=== PATIENT | female | born 1960 | race Caucasian/White ===

== ENCOUNTER 2016-12-01 17:35 | Inpatient (IN) | payer OTHER ==
[~2016-12-01] VITALS: Ht 172.7 cm; Wt 85.8 kg
--- NOTE | ~2016-12-01 | EKG ---
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
--- NOTE | ~2016-12-01 | HC ---
[facility] [place] [address] CONSULTATION Name: JOSEFINA YI Room #: 434-P ADM IN M.R.#: [id number] Admission: 12/01/16 Attend Phys: Cedrick Chrsitensen MD Discharge: Date of : 56 Report #: [id number] THIS REPORT FOR: //name// CC: [facility] physician/PCP Cedrick Christensen PRIMARY PHYSICIAN: Ruthie Barnes MD REFERRING PHYSICIAN: Cedrick Christensen MD REASON FOR REFERRAL: Dyspnea. HISTORY OF PRESENT ILLNESS: The patient is a 56-year-old white female who presents to the emergency room with increasing dyspnea, cough, fever, and myalgias. She was admitted for presumed pneumonia. A pulmonary consultation was requested. The patient has smoked about a pack a day for most of the life. She states that she quit smoking 7 days ago. She has been told that she has COPD in the past. She was last hospitalized 3 years ago. She was in the usual state of health until about 3 days ago when she started to develop cough, dyspnea, and sore throat. She then developed myalgias, fever, chills, and productive cough of purulent sputum. Chest x-ray on admission revealed bilateral vascular congestion, questionable right lower lobe infiltrates. PAST MEDICAL HISTORY: Notable for diabetes mellitus type 2, fibromyalgia, tobacco abuse, history of pneumonia 3 years ago, ovarian cyst, osteoarthritis, and migraine headaches. 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 ALLERGIES: To PENICILLIN, reactions not specified. HOME MEDICATIONS: Zantac, Prilosec, baclofen, Topamax, erythromycin, Nasonex, Enablex, Ventolin, hydrocodone, Synthroid, Motrin, hydroxyzine, and Zithromax. FAMILY HISTORY: Noncontributory. SOCIAL HISTORY: She has smoked most of her life until last 7 days ago, about a pack a day. She drinks socially. REVIEW OF SYSTEMS: As mentioned above, otherwise 10-point system review negative. [facility] [address] [address] CONSULTATION Name: JOSEFINA YI Room #: 434-P [facility] IN M.R.#: [id number] Admission: 12/01/16 Attend Phys: Cedrick Christensen MD Discharge: Date of : 56 Report #: [id number] PHYSICAL EXAMINATION: GENERAL: She is awake, alert, in no apparent distress. VITAL SIGNS: Temperature is 98 degrees Fahrenheit, pulse is , 130/70 mmHg, saturation is 94%. HEENT: Normocephalic, atraumatic. NECK: Supple without any lymphadenopathy or thyromegaly. CHEST: Breath sounds are moderate bilaterally with mild expiratory wheezes. CARDIOVASCULAR: Heart sounds are distant. Normal S1, S2. No murmurs or gallop. Pulses are 2+/4+ bilaterally. BREASTS: Deferred. ABDOMEN: Soft, nontender, no organomegaly or masses felt. EXTREMITIES: There is no edema, cyanosis, or clubbing. LABORATORY DATA: Chest x-ray as mentioned above. Electrolytes are grossly unremarkable. WBC 16,600 without a left shift. Albumin is 3.4. Arterial blood gas revealed pH 7.37, pCO2 of 45, pO2 of 55 on 3 liters of O2. Hemoglobin is 16.6. IMPRESSION: 1. Acute hypercapnic hypoxic respiratory failure in this 56-year-old white female likely related to exacerbation of chronic obstructive pulmonary disease with a productive cough, leukocytosis, possible lower respiratory tract infection, possible pneumonia. Gram-negative is considered. 2. Chronic obstructive pulmonary disease exacerbation. 3. Tobacco abuse, recently quit smoking 7 days ago. 4. Mild infiltrates, right lower lobe, possible pneumonia as mentioned above. RECOMMENDATION: Agree with corticosteroids and bronchodilators along with broad spectrum antibiotics. DVT and GI prophylaxis will be addressed. Smoke cessation should be provided. Once stable, the patient will benefit from an outpatient followup with a pulmonary function test. She would also benefit from maintenance bronchodilator therapy such as Spiriva. In terms of antibiotics, we will complete approximately 5-7 day course. Thank you for this consultation. <ELECTRONICALLY SIGNED> By: Jose Morfin MD 12/02/16 1634 [id number] Jose Morfin MD /nt
[~2016-12-01 17:35] MED LIST: ALLERCLEAR10 MG PO; ALPRAZOLAM ER1 MG; ALPRAZOLAM PO; AUGMENTIN 875875 M1 PO; BACLOFEN 10MG T10 MG PO; BACLOFEN20 MG; BACLOFEN20 MG PO; CELEBREX 200 M200 MG PO; CELEBREX50 MG PO; DIFLUCAN PO; ENABLEX15 MG PO; ERY-TAB250 MG PO; HYDROXYZINE HCL25 M1 PO; IBUPROFEN 800800 M1 PO; LEVAQUIN 500 M500 M1 PO; LEVOTHYROXINE0.2 M1 PO; LIDODERM 5%1 PATCH TRANSDERM; MAXALT MLT ODT10 M1 PO; MEDI-PATCH WIT1 EACH; MEDROLDOSEPACK PO; NASONEX17 GM NASAL; NORCO 5-325 TA1 EACH PO; NORCO 7.5-3251 EACH PO; OSELB75 PO; OUT OF MEDS; OXYCONTIN10 M1 PO; PERCOCET 5-3251 EACH PO; PERCOCET PO; PHENERGAN 25 MG25 M1; PHENERGAN 25 MG25 MG PO; PHENERGAN PO; PHENERGAN25 MG RE; PREDNISONE 10 M10 M1 PO; PREDNISONE 20 M20 M1 PO; PRILOSEC 20 MG20 MG PO; PRILOSEC40 MG; RANITIDINE HCL300 M1 PO; SANTURA; SAVELLA1 EACH; SYNTHROID100 MCG PO; SYNTHROID125 MCG PO; TOPAMAX200 MG PO; TOPAMAX50 MG PO; TRAMADOL 50 MG50 MG PO; VENTOLIN HFA 1818 GM INH; VENTOLIN17 GM INH; VICODIN; VICODIN 5-5001 EACH PO; VITAMIN D 5050000 I1 PO; VITAMIN D400 UNI1; XANAX PO; XANAX XR1 MG PO; ZANTAC150 M2 PO; ZOCOR40 MG PO; ZOLMITRIPTAN ODT5 MG PO; ZYRTEC
[2016-12-01 17:37] VITALS: BP 142/112
[2016-12-01] MEDS ORDERED: ZITHROMAX250 MG PO (17:56)
[2016-12-01 18:17] LABS: HEMATOCRIT 48.7 % (37.0-47.0); HEMOGLOBIN 16.6 gm/dL (12.0-15.0); MCH 29.5 pg (26.0-34.0); MCV 86.6 fL (80.0-100.0); PLATELET COUNT 296 thou/uL (150-400); RBC 5.62 mil/uL (4.20-5.00); WBC 16.6 thou/uL (4.0-11.0)
[2016-12-01 18:28] LABS: MANUAL DIFF YES
[2016-12-01 18:30] LABS: ANION GAP 10 mmol/L (7-16); APTT 24.4 Seconds (24.5-32.8); BUN 23 mg/dL (7-18); CALCIUM 9.4 mg/dL (8.5-10.1); CHLORIDE 99 mmol/L (98-107); CO2 28 mmol/L (21-32); CREATININE 0.9 mg/dL (0.6-1.3); GLUCOSE 223 mg/dL (70-99); POTASSIUM 3.8 mmol/L (3.5-5.1); PROTIME 10.7 Seconds (9.3-11.4); SODIUM 137 mmol/L (136-145)
[2016-12-01 18:43] LABS: ALBUMIN 3.4 g/dL (3.4-5.0); ALKALINE PHOSPHATASE 153 U/L (46-116); NT-PRO BRAIN NAT PEPTIDE 99 pg/mL (<300); SGOT 20 U/L (15-37); SGPT 39 U/L (30-65); TOTAL BILIRUBIN 0.6 mg/dL (<0.1-1.0); TOTAL PROTEIN 8.7 g/dL (6.4-8.2); TROPONIN-I < 0.04 ng/mL (<0.04-0.07)
[2016-12-01 19:00] LABS: ABSOLUTE NEUTROPHILS 12.1 thou/uL (1.4-8.2); TOTAL CELL COUNT 100
[2016-12-01 19:49] VITALS: BP 142/94
[2016-12-01 20:40] VITALS: BP 150/85
[2016-12-02 00:39] VITALS: BP 133/84
[2016-12-02 05:05] VITALS: BP 127/80
[2016-12-02 06:55] LABS: HEMATOCRIT 42.9 % (37.0-47.0); MCH 29.3 pg (26.0-34.0); MCHC 33.7 % (28.0-37.0); MCV 87.1 fL (80.0-100.0); RBC 4.93 mil/uL (4.20-5.00); RDW 14.1 % (10.5-14.5); WBC 11.5 thou/uL (4.0-11.0)
[2016-12-02 07:01] LABS: HEMOGLOBIN 14.5 gm/dL (12.0-15.0)
[2016-12-02 07:10] LABS: CREATININE 0.8 mg/dL (0.6-1.3); POTASSIUM 4.2 mmol/L (3.5-5.1)
[2016-12-02 07:37] VITALS: BP 102/65
[2016-12-02 09:51] LABS: ABG SAMPLE TYPE ARTERIAL; BE(vivo) 0.2 mmol/L (-2 to +3); HCO3 25.9 mmol/L (22.0-26.0); LACTATE 1.37 mmol/L (0.5-2.0); O2(CT) 18.6 mL/dL (15.0-23.0); O2Hb 87.9 % (92.0-98.0); PCO2 45.6 mmHg (35.0-45.0); pH 7.372 (7.360-7.450); sO2 87.7 % (92.0-98.0); tCO2 27.3 mmol/L (24.0-30.0)
[2016-12-02 09:53] LABS: PO2 55.1 mmHg (80.0-100.0)
[2016-12-02 10:12] LABS: TSH 0.025 uIU/mL (0.450-4.500)
[2016-12-02 10:19] LABS: STICK SITE L.BRACHIAL
[2016-12-02 12:34] VITALS: BP 133/68
[2016-12-02 15:54] VITALS: BP 133/73
[2016-12-02 19:49] VITALS: BP 111/45
[2016-12-02 22:07] LABS: GLYCOHEMOGLOBIN (HGB A1C) 6.6 % (4.8-5.6)
[2016-12-03 03:50] VITALS: BP 124/61
[2016-12-03 05:17] LABS: ABSOLUTE NEUTROPHILS 11.6 thou/uL (1.4-8.2); BASOPHILS 0.2 % (0.0-2.0); HEMATOCRIT 43.8 % (37.0-47.0); HEMOGLOBIN 14.4 gm/dL (12.0-15.0); LYMPHOCYTES 13.7 % (24.0-44.0); MCH 28.9 pg (26.0-34.0); MCHC 32.8 % (28.0-37.0); MCV 88.2 fL (80.0-100.0); PLATELET COUNT 311 thou/uL (150-400); POLYS 80.1 % (36.0-66.0); RBC 4.97 mil/uL (4.20-5.00); RDW 13.9 % (10.5-14.5); WBC 14.5 thou/uL (4.0-11.0)
[2016-12-03 05:23] LABS: ABG SAMPLE TYPE ARTERIAL; BE(vivo) 0.7 mmol/L (-2 to +3); HCO3 26.9 mmol/L (22.0-26.0); LACTATE 2.47 mmol/L (0.5-2.0); O2(CT) 19.6 mL/dL (15.0-23.0); O2Hb 94.2 % (92.0-98.0); PCO2 48.7 mmHg (35.0-45.0); PO2 76.3 mmHg (80.0-100.0); STICK SITE LBA; sO2 94.7 % (92.0-98.0); tCO2 28.4 mmol/L (24.0-30.0)
[2016-12-03 05:26] LABS: MANUAL DIFF NO
[2016-12-03 05:44] LABS: POTASSIUM 4.4 mmol/L (3.5-5.1)
[2016-12-03 08:00] VITALS: BP 131/80
[2016-12-03 12:00] VITALS: BP 141/52
[2016-12-03 15:52] VITALS: BP 127/56
[2016-12-03 19:07] VITALS: BP 131/72
[2016-12-04 04:55] VITALS: BP 147/79
[2016-12-04 05:11] LABS: ABSOLUTE NEUTROPHILS 8.8 thou/uL (1.4-8.2); HEMATOCRIT 43.5 % (37.0-47.0); HEMOGLOBIN 14.2 gm/dL (12.0-15.0); LYMPHOCYTES 18.6 % (24.0-44.0); MCH 29.1 pg (26.0-34.0); MCHC 32.6 % (28.0-37.0); MCV 89.3 fL (80.0-100.0); MONOCYTES 5.7 % (1.0-8.0); PLATELET COUNT 294 thou/uL (150-400); POLYS 74.7 % (36.0-66.0); RBC 4.87 mil/uL (4.20-5.00); RDW 14.3 % (10.5-14.5); WBC 11.7 thou/uL (4.0-11.0)
[2016-12-04 05:23] LABS: CALCIUM 8.5 mg/dL (8.5-10.1); CREATININE 0.9 mg/dL (0.6-1.3); MANUAL DIFF NO; POTASSIUM 4.2 mmol/L (3.5-5.1)
[2016-12-04 06:08] LABS: ABG SAMPLE TYPE ARTERIAL; BE(vivo) -2.8 mmol/L (-2 to +3); HCO3 22.2 mmol/L (22.0-26.0); LACTATE 1.78 mmol/L (0.5-2.0); O2(CT) 20.1 mL/dL (15.0-23.0); O2Hb 94.4 % (92.0-98.0); PCO2 39.2 mmHg (35.0-45.0); STICK SITE R.BRACHIAL; sO2 95.4 % (92.0-98.0); tCO2 23.4 mmol/L (24.0-30.0)
[2016-12-04 08:36] VITALS: BP 134/62
[2016-12-04 16:56] VITALS: BP 148/83
[2016-12-04 19:35] VITALS: BP 155/72
[2016-12-05 05:00] VITALS: BP 140/70
[2016-12-05 06:41] LABS: HEMATOCRIT 47.4 % (37.0-47.0); HEMOGLOBIN 15.3 gm/dL (12.0-15.0); MCH 28.9 pg (26.0-34.0); MCHC 32.2 % (28.0-37.0); MCV 89.7 fL (80.0-100.0); PLATELET COUNT 323 thou/uL (150-400); RBC 5.28 mil/uL (4.20-5.00); RDW 14.1 % (10.5-14.5); WBC 13.9 thou/uL (4.0-11.0)
[2016-12-05 06:42] LABS: MANUAL DIFF YES
[2016-12-05 06:51] LABS: CREATININE 0.9 mg/dL (0.6-1.3); POTASSIUM 4.3 mmol/L (3.5-5.1)
[2016-12-05 08:00] VITALS: BP 121/60
[2016-12-05 08:35] LABS: METAMYELOCYTES 2 %; TOTAL CELL COUNT 100
[2016-12-05 08:36] LABS: ANISOCYTOSIS SLIGHT; ATYPICAL LYMPHS 2 %
[2016-12-05 11:06] VITALS: BP 126/64
[2016-12-05 16:00] VITALS: BP 104/46
[2016-12-05 19:30] VITALS: BP 126/68
[2016-12-06 03:50] VITALS: BP 125/70
[2016-12-06 05:56] LABS: HEMATOCRIT 46.1 % (37.0-47.0); MCH 28.8 pg (26.0-34.0); MCHC 32.5 % (28.0-37.0); MCV 88.6 fL (80.0-100.0); PLATELET COUNT 325 thou/uL (150-400); RDW 14.1 % (10.5-14.5); WBC 13.1 thou/uL (4.0-11.0)
[2016-12-06 06:11] LABS: MANUAL DIFF YES
[2016-12-06 06:44] LABS: CALCIUM 8.7 mg/dL (8.5-10.1); POTASSIUM 4.5 mmol/L (3.5-5.1)
[2016-12-06 08:00] VITALS: BP 144/85
[2016-12-06 08:50] LABS: ABSOLUTE NEUTROPHILS 10.5 thou/uL (1.4-8.2); METAMYELOCYTES 2 %; PLATELET ESTIMATE NORMAL; TOTAL CELL COUNT 100
[2016-12-06] MEDS ORDERED: QUINU10 PD PO (10:52)
[2016-12-06] MEDS ORDERED: PROTONIX40 M1 PO (10:52)
[2016-12-06] MEDS ORDERED: LEVAQUIN 500 M500 M6 PO (10:52)
[2016-12-06] MEDS ORDERED: MUCINEX DM TABL1 TA1 PO (10:52)
[2016-12-06] MEDS ORDERED: PREDNISONE 10 M10 MG PO (10:52)
[2016-12-06] MEDS ORDERED: BENZONATATE100 MG PO (10:52)
[2016-12-06 12:00] VITALS: BP 119/68
[2016-12-06 13:00] VITALS: BP 144/85
== END 2016-12-06 13:55 | disposition home or self-care (01) | DRG 190 ==
LOC: ER 17:35 → EROBS 19:20 → 4S 19:20
PROVIDERS: Emergency Medicine; Hospitalist; Nurse Practitioner
DX: J44.0 Chronic obstructive pulmonary disease with (acute) lower respiratory infection (principal); J96.01 Acute respiratory failure with hypoxia; J18.9 Pneumonia, unspecified organism; J96.02 Acute respiratory failure with hypercapnia; J44.1 Chronic obstructive pulmonary disease with (acute) exacerbation; F17.210 Nicotine dependence, cigarettes, uncomplicated; E11.65 Type 2 diabetes mellitus with hyperglycemia; I10 Essential (primary) hypertension; E03.9 Hypothyroidism, unspecified; G89.4 Chronic pain syndrome; G43.909 Migraine, unspecified, not intractable, without status migrainosus; Z88.0 Allergy status to penicillin; Z79.899 Other long term (current) drug therapy; Z79.4 Long term (current) use of insulin; Z99.81 Dependence on supplemental oxygen; Z87.01 Personal history of pneumonia (recurrent); Z90.721 Acquired absence of ovaries, unilateral; Z98.890 Other specified postprocedural states
CPT/HCPCS: 10100

== ENCOUNTER 2017-12-11 12:45 | Emergency (ER) | payer OTHER ==
[~2017-12-11] VITALS: Ht 172.7 cm; Wt 81.2 kg
[~2017-12-11 12:45] MED LIST changes: +BENZONATATE100 MG PO; +LEVAQUIN 500 M500 M6 PO; +MUCINEX DM TABL1 TA1 PO; +PREDNISONE 10 M10 MG PO; +PROTONIX40 M1 PO; +QUINU10 PD PO; +ZITHROMAX250 MG PO
[2017-12-11] MEDS ORDERED: OMEPRAZOLE 20 M20 M1 PO (13:15)
[2017-12-11] MEDS ORDERED: NORCO 10-325 T1 EACH PO (13:16)
[2017-12-11] MEDS ORDERED: TOPAMAX 100 MG100 MG PO (13:16)
[2017-12-11] MEDS ORDERED: SYNTHROID200 MCG PO (13:19)
[2017-12-11] MEDS ORDERED: DIFLUCAN200 MG PO (13:20)
[2017-12-11] MEDS ORDERED: IMITREX 25 MG T25 M1 PO (13:21)
[2017-12-11] MEDS ORDERED: FENOFIBRATE145 M1 PO (13:22)
[2017-12-11] MEDS ORDERED: ZOCOR40 MG PO (13:22)
[2017-12-11] MEDS ORDERED: XANAX1 MG PO (13:23)
[2017-12-11] MEDS ORDERED: ZANTAC 150MG T150 MG PO (13:23)
[2017-12-11 13:40] LABS: HEMATOCRIT 47.6 % (37.0-47.0); HEMOGLOBIN 15.8 gm/dL (12.0-15.0); MCH 29.6 pg (26.0-34.0); MCHC 33.2 g/dL (28.0-37.0); MCV 89.3 fL (80.0-100.0); RBC 5.33 mil/uL (4.20-5.00); RDW 14.9 % (10.5-14.5); WBC 12.7 thou/uL (4.0-11.0)
[2017-12-11 13:48] LABS: URINE BILIRUBIN NEGATIVE (Negative); URINE BLOOD NEGATIVE (Negative); URINE CLARITY CLEAR; URINE COLOR YELLOW; URINE GLUCOSE-RANDOM* NEGATIVE (Negative); URINE KETONES NEGATIVE (Negative); URINE LEUKOCYTES-REFLEX NEGATIVE (Negative); URINE NITRITE-REFLEX NEGATIVE (Negative); URINE PROTEIN (DIPSTICK) NEGATIVE (Negative); URINE UROBILINOGEN 0.2 E.U./dl (0.2-1.0)
[2017-12-11 13:49] LABS: CALCIUM 8.9 mg/dL (8.5-10.1); CREATININE 1.1 mg/dL (0.6-1.0); POTASSIUM 4.4 mmol/L (3.5-5.1)
[2017-12-11 13:56] LABS: ALBUMIN 3.8 g/dL (3.4-5.0); TOTAL BILIRUBIN 0.2 mg/dL (<0.1-1.0); TOTAL PROTEIN 7.6 g/dL (6.4-8.2)
[2017-12-11 14:50] VITALS: BP 153/76
[2018-06-11] MEDS ORDERED: ASPIR 8181 MG PO (12:42)
[2018-06-11] MEDS ORDERED: FOSAMAX 70 MG T70 MG PO (12:42)
[2018-06-11] MEDS ORDERED: ENABLEX15 MG PO (12:43)
[2018-06-11] MEDS ORDERED: IRON325 PO (12:44)
[2018-06-11] MEDS ORDERED: CARVEDILOL3.125 MG PO (12:44)
[2018-06-11] MEDS ORDERED: HYDROXYZINE HCL25 M1 PO (12:46)
[2018-06-11] MEDS ORDERED: TRULICITY0.75 MG/0. (12:46)
[2018-06-11] MEDS ORDERED: METFORMIN HCL500 MG PO (12:50)
[2018-06-11] MEDS ORDERED: MOMETASONE FURO17 GM NASAL (12:51)
[2018-06-11] MEDS ORDERED: NORFLEX100 MG PO (12:54)
[2018-06-11] MEDS ORDERED: POTASSIUM20 PO (12:55)
[2018-06-11] MEDS ORDERED: ZOLPIDEM TARTRA10 MG PO (12:55)
== END 2017-12-11 14:51 | disposition home or self-care (01) ==
LOC: ER 12:45
PROVIDERS: Emergency Medicine
DX: R19.7 Diarrhea, unspecified (principal); R05 Cough; M79.7 Fibromyalgia; G43.909 Migraine, unspecified, not intractable, without status migrainosus; E11.9 Type 2 diabetes mellitus without complications; M19.90 Unspecified osteoarthritis, unspecified site; J44.9 Chronic obstructive pulmonary disease, unspecified; F10.99 Alcohol use, unspecified with unspecified alcohol-induced disorder; F17.210 Nicotine dependence, cigarettes, uncomplicated; Z88.0 Allergy status to penicillin